=== PATIENT | male | born 1980 | race Caucasian/White ===

== ENCOUNTER 2016-10-28 11:47 | Emergency (ER) | payer MEDICAID ==
[~2016-10-28] VITALS: Ht 195.6 cm; Wt 81.8 kg
[2016-10-28 11:52] VITALS: BP 143/89
[2016-10-28] MEDS ORDERED: KETOROLAC 30 MG/1 ML ONE (13:15)
[2016-10-28] MEDS ORDERED: OXYcodone/APAP 5/325MG TABLET ONE (13:15)
[2016-10-28] MEDS ORDERED: KETOROLAC 30 MG/1 ML IM ONE (13:30)
[2016-10-28] MEDS ORDERED: OXYcodone/APAP 5/325MG TABLET PO ONE (13:30)
[2016-10-28 13:53] LABS: HEMATOCRIT 46.5 % (39.2-51.8); HEMOGLOBIN 15.6 g/dL (13.7-18.0); WHITE BLOOD COUNT 8.8 x10^3/uL (3.4-10)
== END 2016-10-28 15:12 | disposition home or self-care (01) ==
LOC: ED 14:04
DX: S86.012A Strain of left Achilles tendon, initial encounter (principal); M76.62 Achilles tendinitis, left leg; X50.9XXA Other and unspecified overexertion or strenuous movements or postures, initial encounter; Y99.8 Other external cause status; Y92.098 Other place in other non-institutional residence as the place of occurrence of the external cause; Y93.89 Activity, other specified
CPT/HCPCS: 36415; 73610; 73630; 76882; 85025; 85651; 96372; 99285; J1885

== ENCOUNTER 2017-07-08 09:12 | Emergency (ER) | payer MEDICAID ==
[~2017-07-08] VITALS: Ht 195.6 cm; Wt 83.0 kg
[2017-07-08] MEDS ORDERED: SODIUM CHLORIDE FLUSH 10ML SYR IVF ONE (10:30)
[2017-07-08 10:31] LABS: BASOPHILS # (AUTO) 0.03 x10^3/uL (0-0.1); BASOPHILS % (AUTO) 0 % (0-1); EOSINOPHILS # (AUTO) 0.14 x10^3/uL (0-0.4); EOSINOPHILS % (AUTO) 2 % (1-7); LYMPHOCYTES # (AUTO) 1.44 x10^3/uL (1-3.4); LYMPHOCYTES % (AUTO) 22 % (22-44); MD NO; MEAN CORPUSCULAR HGB CONC 34.8 g/dL (33.2-36.2); MEAN CORPUSCULAR VOLUME 94.9 fL (81-97); MEAN PLATELET VOLUME 9.9 fL (7.4-10.4); MONOCYTES # (AUTO) 0.65 x10^3/uL (0.2-0.8); MONOCYTES % (AUTO) 10 % (2-9); NEUTROPHILS # (AUTO) 4.37 x10^3/uL (1.8-6.8); NEUTROPHILS % (AUTO) 66 % (42-75); PLATELET COUNT 189 x10^3/uL (130-400); RED BLOOD COUNT 5.17 x10^6/uL (4.38-5.82); RED CELL DISTRIBUTION WIDTH 14.4 % (9.4-14.8)
[2017-07-08 10:32] LABS: HCT (SEDRATE) 49.5 % (39.2-51.8)
[2017-07-08] MEDS ORDERED: MORPHINE SULFATE 4 MG/ML, 1ML ONE ×2 (10:42→12:40)
[2017-07-08] MEDS: MORPHINE SULFATE 4 MG/ML, 1ML IVPush PRN ×2 (10:43→12:41)
[2017-07-08 10:44] LABS: ALANINE AMINOTRANSFERASE 20 U/L (12-78); ALBUMIN 3.8 g/dL (3.4-5.0); ANION GAP 7 mmol/L (5-15); CALCIUM 8.7 mg/dL (8.5-10.1); CHLORIDE 106 mmol/L (98-107); CREATININE 0.86 mg/dL (0.7-1.3)
[2017-07-08 10:46] LABS: ALKALINE PHOSPHATASE 123 U/L (45-117); BILIRUBIN,TOTAL 0.3 mg/dL (0.2-1.0); TOTAL PROTEIN 8.2 g/dL (6.4-8.2)
[2017-07-08 10:48] LABS: INTERNATIONAL NORMALIZED RATIO 0.98 (0.93-1.1); PROTHROMBIN TIME 10.1 Seconds (9.6-11.5)
[2017-07-08 12:38] VITALS: BP 136/88
[2017-07-08] MEDS ORDERED: OMNIPAQUE 350 MG/ML, 150 ML BOTTLE ONE (13:02)
== END 2017-07-08 14:19 | disposition home or self-care (01) ==
LOC: ED 13:31
DX: I73.1 Thromboangiitis obliterans [Buerger's disease] (principal); F17.200 Nicotine dependence, unspecified, uncomplicated
CPT/HCPCS: 36415; 71275; 73206; 80053; 85025; 85610; 85651; 85730; 93005; 96374; 96376; 99285; Q9967

== ENCOUNTER 2018-01-22 06:30 | Emergency (ER) | payer MEDICAID ==
[~2018-01-22] VITALS: Ht 193 cm; Wt 83.0 kg
[2018-01-22 06:31] VITALS: BP 133/94
== END 2018-01-22 07:27 | disposition home or self-care (01) ==
LOC: ED 07:20
DX: B34.9 Viral infection, unspecified (principal); F17.210 Nicotine dependence, cigarettes, uncomplicated; Z88.8 Allergy status to other drugs, medicaments and biological substances
CPT/HCPCS: 99281

== ENCOUNTER 2018-08-16 11:56 | Emergency (ER) | payer MEDICAID ==
[~2018-08-16] VITALS: Ht 193 cm; Wt 87.6 kg
[2018-08-16 12:53] LABS: BASOPHILS # (AUTO) 0.03 x10^3/uL (0-0.1); BASOPHILS % (AUTO) 0 % (0-1); EOSINOPHILS # (AUTO) 0.11 x10^3/uL (0-0.4); EOSINOPHILS % (AUTO) 2 % (1-7); LYMPHOCYTES # (AUTO) 2.66 x10^3/uL (1-3.4); LYMPHOCYTES % (AUTO) 37 % (22-44); MD NO; MEAN CORPUSCULAR HEMOGLOBIN 31.1 pg (27.5-34.5); MEAN CORPUSCULAR HGB CONC 33.2 g/dL (33.2-36.2); MEAN CORPUSCULAR VOLUME 93.7 fL (81-97); MEAN PLATELET VOLUME 9.7 fL (7.4-10.4); MONOCYTES # (AUTO) 0.63 x10^3/uL (0.2-0.8); MONOCYTES % (AUTO) 9 % (2-9); NEUTROPHILS # (AUTO) 3.77 x10^3/uL (1.8-6.8); NEUTROPHILS % (AUTO) 52 % (42-75); PLATELET COUNT 192 x10^3/uL (130-400); RED BLOOD COUNT 5.61 x10^6/uL (4.38-5.82); RED CELL DISTRIBUTION WIDTH 15.1 % (9.4-14.8)
[2018-08-16 13:10] LABS: ALANINE AMINOTRANSFERASE 21 U/L (12-78); ALBUMIN 3.9 g/dL (3.4-5.0); ANION GAP 10 mmol/L (5-15); CALCIUM 8.8 mg/dL (8.5-10.1); CHLORIDE 105 mmol/L (98-107); CREATININE 0.95 mg/dL (0.7-1.3)
[2018-08-16 13:13] LABS: ALKALINE PHOSPHATASE 103 U/L (45-117); BILIRUBIN,TOTAL 0.3 mg/dL (0.2-1.0); TOTAL PROTEIN 8.3 g/dL (6.4-8.2)
--- NOTE | 2018-08-16 13:31 | NUR ---
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 STEADY UPON AMBULATION. NAD NOTED.
[2018-08-16] MEDS ORDERED: ONDANSETRON ODT 4 MG PO ONE (14:00)
--- NOTE | 2018-08-16 14:11 | NUR ---
"MIGHT HAVE ATE SOMETHING BAD, VOMITING, DIARRHEA, STOMACH PAIN, CRAMPS." x 2 days hr 120 UP TO RESTROOM TO VOID AND ATTEMPT STOOL SPECIMEN
--- NOTE | 2018-08-16 14:18 | NUR ---
URINE SENT, UNABLE TO PROVIDE STOOL SAMPLE. SIPPING ON WATER, MEDICATED FOR NAUSEA PER EMAR
[2018-08-16] MEDS ORDERED: ONDANSETRON ODT 4 MG ONE (14:22)
--- NOTE | 2018-08-16 14:55 | NUR ---
Bedside SBAR report received from RN, Mario. Pt states that he is feeling much better, no stool sample obtained yet. VSS.
[2018-08-16 14:56] VITALS: BP 114/80
[2018-08-16 15:11] LABS: MICROSCOPIC AUTO
--- NOTE | 2018-08-16 15:17 | NUR ---
Dr. Andrews at bedside to discuss ED findings and POC. Pt able to tolerate PO fluids without difficulty.
[2018-08-16 15:19] LABS: CULTURE INDICATED? YES
--- NOTE | 2018-08-16 15:26 | NUR ---
Patient/Caregiver given discharge instructions and they have confirmed that they understand the instructions. Patient ambulatory with steady gait.
== END 2018-08-16 15:27 | disposition home or self-care (01) ==
LOC: ED 14:42
DX: K52.9 Noninfective gastroenteritis and colitis, unspecified (principal); F17.200 Nicotine dependence, unspecified, uncomplicated
CPT/HCPCS: 36415; 80053; 81001; 83690; 85025; 87086; 99283; Q0162

== ENCOUNTER 2018-10-05 09:39 | Emergency (ER) | payer MEDICAID ==
[~2018-10-05] VITALS: Ht 195.6 cm; Wt 89.9 kg
[2018-10-05 12:11] VITALS: BP 143/93
== END 2018-10-05 12:13 | disposition home or self-care (01) ==
LOC: ED 09:53
DX: G89.11 Acute pain due to trauma (principal); N50.811 Right testicular pain; Z88.6 Allergy status to analgesic agent; Z88.5 Allergy status to narcotic agent
CPT/HCPCS: 76870; 81001; 99284

== ENCOUNTER 2019-05-11 00:21 | Emergency (ER) | payer MEDICAID ==
[~2019-05-11] VITALS: Ht 195.6 cm; Wt 86.4 kg
[2019-05-11 00:24] VITALS: BP 114/82
[2019-05-11] MEDS ORDERED: ONDANSETRON 2MG/ML, 2ML IVPush ONE (00:30)
[2019-05-11] MEDS ORDERED: MORPHINE SULFATE 4 MG/ML, 1ML IVPush PRN (00:30)
--- NOTE | 2019-05-11 00:41 | NUR ---
BIB [facility] FOR C/O ABD PAIN SINCE 5PM. REPORTS VOMITING X 5 AND DIARRHEA X2. IV ESTABLISHED EN ROUTE AND 4MG ZOFRAN AND 100MCG FENTANYL ADMIN. DR. MONTERO WAS IN TO EVAL PT. AND DISCUSS POC IMMEDIALY ON ARRIVAL TO ED. PT. WAS PROVIDED WITH URINAL AND URINE SAMPLE REQUESTED. LAB AT FOR BLOOD DRAW. WARM BLANKET PROVIDED.
[2019-05-11 00:48] LABS: BASOPHILS # (AUTO) 0.02 x10^3/uL (0-0.1); BASOPHILS % (AUTO) 0 % (0-1); EOSINOPHILS # (AUTO) 0.32 x10^3/uL (0-0.4); EOSINOPHILS % (AUTO) 3 % (1-7); LYMPHOCYTES # (AUTO) 1.82 x10^3/uL (1-3.4); LYMPHOCYTES % (AUTO) 19 % (22-44); MD NO; MEAN CORPUSCULAR HEMOGLOBIN 31.9 pg (27.5-34.5); MEAN CORPUSCULAR HGB CONC 34.2 g/dL (33.2-36.2); MEAN CORPUSCULAR VOLUME 93.2 fL (81-97); MEAN PLATELET VOLUME 9.8 fL (7.4-10.4); MONOCYTES # (AUTO) 1.42 x10^3/uL (0.2-0.8); MONOCYTES % (AUTO) 15 % (2-9); NEUTROPHILS % (AUTO) 63 % (42-75); PLATELET COUNT 225 x10^3/uL (130-400); RED BLOOD COUNT 5.15 x10^6/uL (4.38-5.82); RED CELL DISTRIBUTION WIDTH 14.1 % (9.4-14.8)
[2019-05-11 00:53] LABS: ALANINE AMINOTRANSFERASE 27 U/L (12-78); ALBUMIN 3.5 g/dL (3.4-5.0); ANION GAP 6 mmol/L (5-15); CALCIUM 8.2 mg/dL (8.5-10.1); CHLORIDE 112 mmol/L (98-107)
[2019-05-11 00:55] LABS: ALKALINE PHOSPHATASE 88 U/L (45-117); BILIRUBIN,TOTAL 0.1 mg/dL (0.2-1.0); TOTAL PROTEIN 7.1 g/dL (6.4-8.2)
--- NOTE | 2019-05-11 01:04 | NUR ---
THIS RN ENTERED ROOM TO FIND PT. HAD PULLED OUT HIS IV HE STATES "IT WAS BURNING SO I TOOK IT OUT, I AM LEAVING." ATTEMPTED TO ASK PT. TO REMAIN IN ED UNTIL MD COULD SPEAK WITH HIM, PT. REFUSED AND WALKED OUT OF ED WITH STEADY GAIT.
== END 2019-05-11 01:09 | disposition left against medical advice (07) ==
LOC: ED 01:01
DX: A09 Infectious gastroenteritis and colitis, unspecified (principal); F10.129 Alcohol abuse with intoxication, unspecified; F15.129 Other stimulant abuse with intoxication, unspecified; F17.200 Nicotine dependence, unspecified, uncomplicated; R11.2 Nausea with vomiting, unspecified; Z72.9 Problem related to lifestyle, unspecified; Y90.9 Presence of alcohol in blood, level not specified
CPT/HCPCS: 36415; 80053; 80307; 83690; 85025; 99283

== ENCOUNTER 2019-05-17 13:32 | Emergency (ER) | payer MEDICAID ==
[~2019-05-17] VITALS: Ht 195.6 cm; Wt 87.5 kg
[2019-05-17 13:43] VITALS: BP 148/94
[2019-05-17 14:24] LABS: RAPID INFLUENZA A Negative (Negative); RAPID INFLUENZA B Negative (Negative)
--- NOTE | 2019-05-17 14:49 | NUR ---
report to ALESHIA Simon.
== END 2019-05-17 14:52 | disposition home or self-care (01) ==
LOC: ED 14:20
DX: J06.9 Acute upper respiratory infection, unspecified (principal)
CPT/HCPCS: 71046; 87081; 87400; 87880; 99284

== ENCOUNTER 2020-05-16 10:42 | Emergency (ER) | payer MEDICAID ==
[~2020-05-16] VITALS: Ht 195.6 cm; Wt 99.5 kg
--- NOTE | 2020-05-16 11:14 | NUR ---
PT STATES ABOUT 4 DAYS AGO PAIN IN FOOT BEGAN. BEGAN TO GET A LOT MORE PAINFUL IN LAST COUPLE DAYS. WAS HAVING TROUBLE WALKING SO CAME INTO ED. WOUND SHOWS SWELLING, DISCHARGE AND REDNESS.
[2020-05-16] MEDS ORDERED: OXYcodone/APAP 5/325MG TABLET ONE ×2 (11:23→16:09)
[2020-05-16] MEDS ORDERED: OXYcodone/APAP 5/325MG TABLET PO ONE ×2 (11:30→16:30)
[2020-05-16 11:44] LABS: BASOPHILS % (AUTO) 1 % (0-1); EOSINOPHILS % (AUTO) 1 % (1-7); LYMPHOCYTES % (AUTO) 17 % (22-44); MEAN CORPUSCULAR HEMOGLOBIN 33.5 pg (27.5-34.5); MEAN CORPUSCULAR HGB CONC 36.1 g/dL (33.2-36.2); MEAN PLATELET VOLUME 11.1 fL (7.4-10.4); MONOCYTES % (AUTO) 7 % (2-9); NEUTROPHILS % (AUTO) 74 % (42-75); PLATELET COUNT 202 x10^3/uL (130-400); RED BLOOD COUNT 5.22 x10^6/uL (4.38-5.82); RED CELL DISTRIBUTION WIDTH 13.6 % (9.4-14.8)
[2020-05-16 11:53] LABS: ALANINE AMINOTRANSFERASE 23 U/L (12-78); ALBUMIN 3.9 g/dL (3.4-5.0); ANION GAP 7 mmol/L (5-15); CHLORIDE 106 mmol/L (98-107); CREATININE 0.96 mg/dL (0.7-1.3)
[2020-05-16 11:56] LABS: ALKALINE PHOSPHATASE 85 U/L (45-117); BILIRUBIN,TOTAL 0.4 mg/dL (0.2-1.0)
[2020-05-16 12:13] LABS: MD SCAN
[2020-05-16] MEDS ORDERED: SODIUM CHLORIDE FLUSH 10ML SYR IVF ONE (12:30)
--- NOTE | 2020-05-16 12:55 | NUR ---
PT OFF UNIT IN IMAGING.
[2020-05-16] MEDS ORDERED: OMNIPAQUE 350 MG/ML, 150 ML BOTTLE ONE (13:05)
[2020-05-16] MEDS ORDERED: L.E.T SOLUTION TP ONE (15:34)
[2020-05-16] MEDS ORDERED: LIDOCAINE-MPF 1%, 5ML ONE (15:34)
[2020-05-16] MEDS ORDERED: LIDOCAINE-MPF 1%, 5ML INFIL ONE (16:00)
[2020-05-16] MEDS ORDERED: NEOSPORIN OINT. PKT 1 PACKET ONE ×2 (16:29→16:37)
[2020-05-16 16:48] VITALS: BP 115/75
== END 2020-05-16 17:00 | disposition home or self-care (01) ==
LOC: ED 13:14
DX: L02.611 Cutaneous abscess of right foot (principal); M20.11 Hallux valgus (acquired), right foot
CPT/HCPCS: 10060; 36415; 73630; 73701; 80053; 85025; 99285; Q9967

== ENCOUNTER 2020-07-17 20:00 | Emergency (ER) | payer MEDICAID ==
[~2020-07-17] VITALS: Ht 195.6 cm; Wt 90.0 kg
[2020-07-17 20:07] VITALS: BP 136/95
--- NOTE | 2020-07-17 23:32 | NUR ---
charge nurse: Not in lobby on x4 occassions. LWBS
== END 2020-07-17 23:34 ==
LOC: ED 20:20
DX: M79.671 Pain in right foot (principal)
CPT/HCPCS: 99283

== ENCOUNTER 2020-07-18 08:17 | Emergency (ER) | payer MEDICAID ==
[~2020-07-18] VITALS: Ht 195.6 cm; Wt 205.0 kg
--- NOTE | 2020-07-18 08:32 | NUR ---
HERE YESTERDAY. WAS WALKING, HEARD POP IN RIGHT FOOT. FEELS HE'S SPRAINED ANKLE. PT STATED HE IS IN HORRIBLE PAIN, STATED THINKS FOOT IS BROKEN. PT STATES HE IS UNABLE TO WALK WITHOUT 10/10 PAIN. NO OBVIOUS SWELLING OR DEFORMITY IN RLE. CMS INTACT. BALDEV CADENA TO BEDSIDE FOR EVALUATION. PT ATTACHED TO MONITORS. VSS.
[2020-07-18] MEDS ORDERED: KETOROLAC 30 MG/1 ML ONE (08:36)
[2020-07-18] MEDS ORDERED: KETOROLAC 30 MG/1 ML IM ONE (09:00)
[2020-07-18 09:26] VITALS: BP 98/55
--- NOTE | 2020-07-18 09:32 | NUR ---
Patientgiven discharge instructions and they have confirmed that they understand the instructions. Patient ambulatory with steady gait with aid of crutches.
== END 2020-07-18 09:33 | disposition home or self-care (01) ==
LOC: ED 09:07
DX: S93.491A Sprain of other ligament of right ankle, initial encounter (principal); F17.200 Nicotine dependence, unspecified, uncomplicated; X50.1XXA Overexertion from prolonged static or awkward postures, initial encounter; Y93.89 Activity, other specified; Y92.009 Unspecified place in unspecified non-institutional (private) residence as the place of occurrence of the external cause; Y99.8 Other external cause status
CPT/HCPCS: 29515; 73610; 96372; 99283; J1885

== ENCOUNTER 2020-08-29 10:38 | Emergency (ER) | payer MEDICAID ==
[~2020-08-29] VITALS: Ht 193 cm; Wt 86.8 kg
[2020-08-29 10:40] VITALS: BP 103/66
[2020-08-29] MEDS ORDERED: KETOROLAC 30 MG/1 ML IM ONE (11:00)
[2020-08-29] MEDS ORDERED: KETOROLAC 30 MG/1 ML ONE (11:06)
--- NOTE | 2020-08-29 11:11 | NUR ---
[employer]IT FINANCIAL CONTROLLER PER MAR
== END 2020-08-29 12:13 | disposition home or self-care (01) ==
LOC: ED 12:02
DX: H65.02 Acute serous otitis media, left ear (principal)
CPT/HCPCS: 96372; 99283; J1885

== ENCOUNTER 2020-10-28 05:53 | Emergency (ER) | payer MEDICAID, OTHER ==
[~2020-10-28] VITALS: Ht 195.6 cm; Wt 90.4 kg
[2020-10-28 05:55] VITALS: BP 121/70
--- NOTE | 2020-10-28 06:03 | NUR ---
PT STATES HE DROPPED A COUCH ON HIS FOOT 2 DAYS AGO, PT STATES HE HAS BEEN DRINKING TO NUMB THE PAIN, PT AMBULATED TO ROOM, NAD AT THIS TIME
[2020-10-28] MEDS ORDERED: OXYcodone/APAP 5/325MG TABLET ONE (06:16)
[2020-10-28] MEDS ORDERED: OXYcodone/APAP 5/325MG TABLET PO ONE (06:30)
--- NOTE | 2020-10-28 08:08 | NUR ---
PT WITH SPLINT ON RIGHT FOOT. PT ABLE TO DEMONSTRATE CRUTCH WALKING. NO IV TO DC. REVIEWED DC INSTRUCTIONS WITH PT, UNDERSTANDING VERBALIZED. PT LEFT CRUTCH WALKING, STEADY GAIT. PT WITH PAIN DECREASED TO 3/10.
== END 2020-10-28 08:25 | disposition home or self-care (01) ==
LOC: ED 08:10
DX: S92.344A Nondisplaced fracture of fourth metatarsal bone, right foot, initial encounter for closed fracture (principal); S92.354A Nondisplaced fracture of fifth metatarsal bone, right foot, initial encounter for closed fracture; F17.200 Nicotine dependence, unspecified, uncomplicated; X58.XXXA Exposure to other specified factors, initial encounter; Y93.89 Activity, other specified; Y92.009 Unspecified place in unspecified non-institutional (private) residence as the place of occurrence of the external cause; Y99.8 Other external cause status
CPT/HCPCS: 29515; 99283

== ENCOUNTER 2020-11-05 07:18 | Emergency (ER) | payer MEDICAID, OTHER ==
[~2020-11-05] VITALS: Ht 190.5 cm; Wt 86.0 kg
[2020-11-05] MEDS ORDERED: OXYcodone/APAP 5/325MG TABLET PO ONE (07:30)
[2020-11-05] MEDS ORDERED: OXYcodone/APAP 5/325MG TABLET ONE (07:34)
[2020-11-05 08:36] VITALS: BP 119/89
== END 2020-11-05 08:38 | disposition home or self-care (01) ==
LOC: ED 08:27
DX: S92.344A Nondisplaced fracture of fourth metatarsal bone, right foot, initial encounter for closed fracture (principal); S92.354A Nondisplaced fracture of fifth metatarsal bone, right foot, initial encounter for closed fracture; R00.0 Tachycardia, unspecified; X58.XXXA Exposure to other specified factors, initial encounter; Y93.89 Activity, other specified; Y92.69 Other specified industrial and construction area as the place of occurrence of the external cause; Y99.0 Civilian activity done for income or pay
CPT/HCPCS: 99283

== ENCOUNTER 2020-11-18 11:27 | Emergency (ER) | payer MEDICAID, OTHER ==
--- NOTE | 2020-11-18 12:24 | NUR ---
CALLED PATIENT, NOW ANSWER NIL X 1
--- NOTE | 2020-11-18 13:22 | NUR ---
NOT IN LOBBY X2 @[id number]
--- NOTE | 2020-11-18 13:38 | NUR ---
NOT IN LOBBY X 3 @ 1980
== END 2020-11-18 13:40 | disposition left against medical advice (07) ==
LOC: ED 12:00
DX: M79.671 Pain in right foot (principal); Z53.21 Procedure and treatment not carried out due to patient leaving prior to being seen by health care provider

== ENCOUNTER 2020-11-21 06:11 | Emergency (ER) | payer MEDICAID ==
[~2020-11-21] VITALS: Ht 193 cm; Wt 90.9 kg
[2020-11-21 09:01] VITALS: BP 152/97
--- NOTE | 2020-11-21 10:40 | NUR ---
TO ROOM AT THIS TIME
[2020-11-21] MEDS ORDERED: KETOROLAC 30 MG/1 ML IM ONE (11:30)
[2020-11-21] MEDS ORDERED: DIPHENHYDRAMINE 25 MG CAPSULE PO ONE (11:30)
[2020-11-21] MEDS ORDERED: LORazepam 1MG TABLET PO ONE (11:30)
[2020-11-21] MEDS ORDERED: OXYcodone/APAP 5/325MG TABLET PO ONE (11:30)
[2020-11-21] MEDS ORDERED: OXYcodone/APAP 5/325MG TABLET ONE (11:33)
[2020-11-21] MEDS ORDERED: KETOROLAC 30 MG/1 ML ONE (11:33)
[2020-11-21] MEDS ORDERED: LORazepam 1MG TABLET ONE (11:34)
[2020-11-21] MEDS ORDERED: DIPHENHYDRAMINE 25 MG CAPSULE ONE (11:34)
--- NOTE | 2020-11-21 11:39 | NUR ---
PT MEDICATED PER MAR
== END 2020-11-21 13:38 | disposition home or self-care (01) ==
LOC: ED 10:28
DX: S00.262A Insect bite (nonvenomous) of left eyelid and periocular area, initial encounter (principal); F17.200 Nicotine dependence, unspecified, uncomplicated; W57.XXXA Bitten or stung by nonvenomous insect and other nonvenomous arthropods, initial encounter; Y93.89 Activity, other specified; Y92.89 Other specified places as the place of occurrence of the external cause; Y99.8 Other external cause status
CPT/HCPCS: 96372; 99284; J1885; Q0163

== ENCOUNTER 2020-12-02 07:22 | Emergency (ER) | payer MEDICAID ==
[~2020-12-02] VITALS: Ht 195.6 cm; Wt 92.2 kg
--- NOTE | 2020-12-02 07:26 | NUR ---
NO ANSWER FROM LOBBY TO TRIAGE
--- NOTE | 2020-12-02 08:17 | NUR ---
PT STATES NAUSEA AND DIARRHEA X2 DAYS, DENIES VOMITING. PT STATES COUGH WELL. PT PLACED ON MONITORS, VSS. ER PA-C AT BEDSIDE FOR ASSESSMENT.
--- NOTE | 2020-12-02 09:15 | NUR ---
PT D/C'D PER ORDERS, VERBALIZED UNDERSTANDING OF D/C ORDERS. PT LEFT EARBUDS IN ROOM AT D/C, GIVEN TO SECURITY FOR SAFE KEEPING.
[2020-12-02 09:16] VITALS: BP 119/79
== END 2020-12-02 09:19 | disposition home or self-care (01) ==
LOC: ED 07:52
DX: B34.9 Viral infection, unspecified (principal); Z20.822 Contact with and (suspected) exposure to COVID-19
CPT/HCPCS: 99283; U0003; U0005